=== PATIENT | male | born 2000 | race African-American/Black ===

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

== ENCOUNTER 2024-07-28 10:27 | Emergency (ER) | payer MEDICAID ==
[~2024-07-28] VITALS: Ht 175.3 cm; Wt 77.0 kg
[2024-07-28 10:42] VITALS: TEMP 98.7; O2SAT 99
[2024-07-28 12:13] VITALS: BP 119/85; PULSE 86; RESP 18
[2024-07-28] MEDS: LIDOCAINE HCL/EPINEPHRINE 1%-EPI 1:100,000 20ML VIAL INFIL ONE (12:13)
[2024-07-28] MEDS: BACITRACIN ZINC OINT UDPKT TOP ONE (12:13)
[2024-07-28] MEDS: HYDROCODONE/ACETAMINOPHEN 5/325MG TABLET PO STA (12:13)
[2024-07-28] MEDS: TETANUS, DIPHTHERIA, PERTUSSIS VAC/PF 0.5ML (>10YR OLD) IM ONE (12:25)
[2024-07-28] MEDS: BALANCED SALT IRRIG SOLN 15ML IR ONE (14:07)
[2024-07-28] MEDS: TETRACAINE 0.5% OPHTH DROPS 4ML LEFTEYE ONE (14:07)
== END 2024-07-28 12:11 | disposition left against medical advice (07) ==
LOC: ER 10:27
DX: S11.81XA Laceration without foreign body of other specified part of neck, initial encounter (principal); S00.12XA Contusion of left eyelid and periocular area, initial encounter; F19.90 Other psychoactive substance use, unspecified, uncomplicated; Y08.89XA Assault by other specified means, initial encounter; Y93.89 Activity, other specified; Y92.89 Other specified places as the place of occurrence of the external cause; Y99.8 Other external cause status
CPT/HCPCS: 90715; 12004; 90471; 99283; J3490; Z7610 ×2